=== PATIENT | male | born 1970 | race Caucasian/White ===

== ENCOUNTER 2020-11-12 07:05 | Day surgery (SDC) | payer BC ==
[~2020-11-12] VITALS: Ht 182.9 cm; Wt 131.5 kg
[~2020-11-12 07:05] MED LIST: CARV6.2551 PO; DILT30TA PO; ENAL2.5T7 PO; FURO1TAB31 PO; LEVO25TA6 PO; POTA10TA51 PO; PRAM0.12 PO; RIVA10TA PO
[2020-11-12] MEDS ORDERED: fentaNYL CITRATE 100 MCG/2 ML VL IV ONE (07:30)
[2020-11-12] MEDS ORDERED: LIDOCAINE VISCOUS 2% 15ML UD MT ONE (07:30)
[2020-11-12] MEDS ORDERED: MIDAZOLAM HCL 2MG/2ML 2ml VIAL (1mg/ml) IV ONE (07:30)
[2020-11-12] MEDS ORDERED: diphenhdrAMINE HCL 50 MG/1 ML VL IV ONE (07:30)
== END 2020-11-12 10:24 | disposition home or self-care (01) ==
LOC: CATH 07:05
PROVIDERS: ATTEND Internal Medicine Cardiovascular Disease
DX: Z13.6 Encounter for screening for cardiovascular disorders (principal); I10 Essential (primary) hypertension; K21.9 Gastro-esophageal reflux disease without esophagitis; I08.1 Rheumatic disorders of both mitral and tricuspid valves; I48.91 Unspecified atrial fibrillation; Z20.822 Contact with and (suspected) exposure to COVID-19; Z98.890 Other specified postprocedural states; Z79.899 Other long term (current) drug therapy; Z68.33 Body mass index [BMI] 33.0-33.9, adult; Z68.39 Body mass index [BMI] 39.0-39.9, adult
CPT/HCPCS: 93312; J1200; J2250; J3010; U0003

== ENCOUNTER 2024-06-06 06:09 | Inpatient (IN) | payer BC ==
[2024-06-04 11:08] LABS: Urine Bacteria None Seen /hpf (None Seen)
[2024-06-04 11:15] LABS: Basophils # (auto) 0 10 ^3/uL (0-0.2); Eosinophils # (auto) 0.1 10 ^3/uL (0-0.8); Lymphocytes # (auto) 0.4 10 ^3/uL (0.4-5.4); Monocytes # (auto) 0.4 10 ^3/uL (0-1.3); Monocytes % (auto) 5.2 % (0.0-12.0); Neutrophils # (auto) 5.9 10 ^3/uL (1.6-8.6); Nucleated Red Blood Cells % 0.1 %
[2024-06-04 11:16] LABS: Basophils % (auto) 0.5 % (0.0-2.0); Eosinophils % (auto) 1.3 % (0.0-7.0); Hematocrit 46.3 % (41.0-53.0); Hemoglobin 15.2 g/dL (13.5-17.5); Lymphocytes % (auto) 5.5 % (10.0-50.0); Mean Corpuscular Hemoglobin 35.1 pg (28.0-32.0); Mean Corpuscular Hgb Conc. 32.9 g/dL (32.0-36.0); Mean Corpuscular Volume 106.5 fL (80.0-100.0); Neutrophils % (auto) 87.5 % (37.0-80.0); Platelet Count (auto) 134 10^3/uL (140-450); Red Blood Cells 4.35 10^6/uL (4.5-5.90); Red Cell Distribution Width 16.9 % (11.8-14.3); White Blood Cell 6.8 10^3/uL (4.4-10.8)
[2024-06-04 11:27] LABS: INR 1.22 (0.9-1.15); Partial Thromboplastin Time 25.4 SEC (24.5-34.5); Prothrombin Time 12.7 sec (9.3-11.8)
[2024-06-04 11:30] LABS: Urine Blood Negative /uL (Negative); Urine Clarity Clear (Clear); Urine Color Yellow (Yellow); Urine Mucus FEW (None Seen); Urine Protein, UAD 1+ (Negative); Urine Specific Gravity 1.032 (1.001-1.035); Urine Urobilinogen Normal (Negative); Urine WBC 1 /hpf (0 - 3); Urine pH 5.5 (5.0-9.0)
[2024-06-04 11:55] LABS: Alanine Aminotransferase 34 U/L (7-40); Alkaline Phosphatase 40 U/L (46-116); Anion Gap 5 (5-15); Aspartate Aminotransferase 11 U/L (13-40); BUN/Creatinine Ratio 21.2 (10.0-20.0); Blood Urea Nitrogen 29 mg/dL (9-23); Calcium 9.9 mg/dL (8.7-10.4); Carbon Dioxide 25 mmol/L (20-31); Chloride 110 mmol/L (98-107); Glucose 155 mg/dL (74-106); Potassium 4.6 mmol/L (3.5-5.1); Sodium 140 mmol/L (136-145)
[2024-06-04 11:56] LABS: Bilirubin, Total 1.1 mg/dL (0.2-1.0); Total Protein 5.9 g/dL (5.7-8.2)
[~2024-06-06] VITALS: Ht 188 cm; Wt 148.8 kg
[2024-06-06] VITALS (8 sets, daily range): BP systolic 95–103; BP diastolic 51–65; PULSE 70–102; RESP 14–19; TEMP 97.9–99.1; O2SAT 91–99
[~2024-06-06 06:09] MED LIST changes: +EMPA1TAB PO; +ENAL1TAB42 PO; -ENAL2.5T7 PO; +POTA-36 PO; -POTA10TA51 PO
[2024-06-06] MEDS: ceFAZolin 2 GM/D5W100ml 100 ML IV ONE (07:42)
[2024-06-06] MEDS ORDERED: MIDAZOLAM HCL 2MG/2ML 2ml VIAL (1mg/ml) ONE (08:23)
[2024-06-06] MEDS ORDERED: fentaNYL CITRATE 100 MCG/2 ML VL ONE (08:23)
[2024-06-06] MEDS ORDERED: KETAMINE 50mg/ML 1ml syringe ONE (08:23)
[2024-06-06] MEDS ORDERED: MEPERIDINE HCL (50 MG/ML) 1 ML VIAL ONE (08:23)
[2024-06-06] MEDS ORDERED: GLYCOPYRROLATE 0.2 MG/ML 1ML VIAL ONE (08:24)
[2024-06-06] MEDS ORDERED: PROPOFOL 10 MG/ML 20 ML IV ONE (08:24)
[2024-06-06] MEDS ORDERED: LIDOCAINE 2% (LOCAL ANESTH.) PF 5ml SDV ONE (08:24)
[2024-06-06] MEDS ORDERED: ePHEDrine SULFATE 50 MG/ML AMP ONE (08:24)
[2024-06-06] MEDS ORDERED: ROCURONIUM 10MG/ML 10ML VIAL IV ONE (08:24)
[2024-06-06] MEDS ORDERED: KETOROLAC TROMETH 30 MG/ML 1ML VIAL ONE (08:24)
[2024-06-06] MEDS ORDERED: ONDANSETRON HCL 4 MG/2 ML VIAL ONE (08:24)
[2024-06-06] MEDS ORDERED: DexAMETHasone SOD PHOS 10MG/1ML VIAL INJ ONE (08:24)
[2024-06-06] MEDS: SUCCINYLCHOLINE CHLORIDE 20 MG/ML 10ML VIAL IV ONE (09:56)
[2024-06-06] MEDS: BUPIVACAINE HCL 0.25% P/F 10 ML VIAL ONE (10:50)
[2024-06-06] MEDS: LIDOCAINE W/ EPINEPHRINE 1% 20ML VIAL ONE (10:50)
[2024-06-06] MEDS ORDERED: SUGAMMADEX 200mg/2ml Vial (100MG/ML) IV ONE (10:53)
[2024-06-06] MEDS ORDERED: HYDROmorphone HCL 2 MG/ML VL/or syr IV PRN ×3 (11:00→14:15)
[2024-06-06] MEDS ORDERED: D5W/SOD CHL 0.45%/KCL 20MEQ 1,000 ML IV SCH (11:00)
[2024-06-06] MEDS ORDERED: ONDANSETRON HCL 4 MG/2 ML VIAL IV PRN (11:00)
[2024-06-06] MEDS: ONDANSETRON HCL 4 MG/2 ML VIAL IV ONE (11:30)
[2024-06-06] MEDS ORDERED: MORPHINE SULFATE INJ 2 MG/ml SYRG IV PRN (13:30)
[2024-06-06] MEDS ORDERED: NITROGLYCERIN 0.4 MG SL TAB SL PRN (13:30)
[2024-06-06] MEDS: ceFAZolin 2 GM/D5W50ml 50 ML IV SCH (15:34)
[2024-06-06] MEDS: ACETAMINOPHEN/CODEINE#3 (300/30mg) TAB PO PRN (17:08)
[2024-06-06] MEDS ORDERED: LEVO25TA6 PO (17:10)
[2024-06-06] MEDS ORDERED: MYCO500T PO (17:10)
[2024-06-06] MEDS: D5W/SOD CHL 0.45%/KCL 20MEQ 1,000 ML IV SCH (17:10)
[2024-06-06] MEDS ORDERED: PRAM0.373 PO (17:10)
[2024-06-06] MEDS ORDERED: POTA-36 PO (17:10)
[2024-06-06] MEDS ORDERED: FURO1TAB31 PO (17:10)
[2024-06-06] MEDS ORDERED: EMPA1TAB PO (17:10)
[2024-06-06] MEDS ORDERED: TAMS0.4C39 PO (17:10)
[2024-06-06] MEDS ORDERED: ATOR20TA50 PO (17:10)
[2024-06-06] MEDS ORDERED: CARV6.2551 PO (17:10)
[2024-06-06] MEDS ORDERED: RIVA20TA PO (17:10)
[2024-06-06] MEDS: PRAMIPEXOLE DIHYDROCHLORIDE MO 0.25 MG TAB PO SCH ×2 (21:52→22:00)
[2024-06-07] VITALS (7 sets, daily range): BP systolic 99–136; BP diastolic 45–89; PULSE 69–95; RESP 17–20; TEMP 97.6–98; O2SAT 95–97
[2024-06-07] MEDS: LEVOTHYROXINE SODIUM 25 MCG TAB PO SCH (05:20)
[2024-06-07 05:37] LABS: Basophils # (auto) 0 10 ^3/uL (0-0.2); Basophils % (auto) 0.1 % (0.0-2.0); Eosinophils # (auto) 0 10 ^3/uL (0-0.8); Lymphocytes # (auto) 0.3 10 ^3/uL (0.4-5.4); Neutrophils # (auto) 5.2 10 ^3/uL (1.6-8.6)
[2024-06-07 05:40] LABS: Hematocrit 44.7 % (41.0-53.0); Hemoglobin 14.6 g/dL (13.5-17.5); Lymphocytes % (auto) 5.1 % (10.0-50.0); Mean Corpuscular Hemoglobin 35.1 pg (28.0-32.0); Mean Corpuscular Hgb Conc. 32.7 g/dL (32.0-36.0); Mean Corpuscular Volume 107.3 fL (80.0-100.0); Monocytes # (auto) 0.4 10 ^3/uL (0-1.3); Monocytes % (auto) 6.2 % (0.0-12.0); Neutrophils % (auto) 88.6 % (37.0-80.0); Platelet Count (auto) 130 10^3/uL (140-450); Red Blood Cells 4.16 10^6/uL (4.5-5.90); Red Cell Distribution Width 16.9 % (11.8-14.3); White Blood Cell 5.9 10^3/uL (4.4-10.8)
[2024-06-07 05:58] LABS: Alanine Aminotransferase 32 U/L (7-40); Albumin 4.2 g/dL (3.2-4.8); Alkaline Phosphatase 39 U/L (46-116); Aspartate Aminotransferase 10 U/L (13-40); Bilirubin, Total 1.1 mg/dL (0.2-1.0); Calcium 9.1 mg/dL (8.7-10.4); Chloride 107 mmol/L (98-107); Glucose 163 mg/dL (74-106); Potassium 5.3 mmol/L (3.5-5.1); Sodium 136 mmol/L (136-145); Total Protein 5.9 g/dL (5.7-8.2)
[2024-06-07] MEDS ORDERED: LEVOTHYROXINE SODIUM 25 MCG TAB PO SCH (06:00)
[2024-06-07 07:19] LABS: Anion Gap 6 (5-15); BUN/Creatinine Ratio 18.8 (10.0-20.0); Blood Urea Nitrogen 22 mg/dL (9-23); Carbon Dioxide 23 mmol/L (20-31)
[2024-06-07] MEDS: PANTOPRAZOLE 40 MG/10 ML VIAL INJ IV SCH (10:23)
[2024-06-07] MEDS ORDERED: DOCU-94 PO (11:58)
[2024-06-07] MEDS ORDERED: CEPH500C PO (11:58)
[2024-06-07] MEDS ORDERED: ACE3T PO (11:58)
== END 2024-06-07 16:30 | disposition home or self-care (01) | DRG 353 ==
LOC: SUR 06:09 → TELE 13:23 → TELE-EAST 14:20
PROVIDERS: ADMIT Surgery; ATTEND Internal Medicine
PROC: 0DBU0ZZ Excision of Omentum, Open Approach (ICD-10-PCS; 2024-06-06)
PROC: 0WQF0ZZ Repair Abdominal Wall, Open Approach (ICD-10-PCS; principal; 2024-06-06 10:05)
DX: K42.9 Umbilical hernia without obstruction or gangrene (principal); N17.0 Acute kidney failure with tubular necrosis; Z68.41 Body mass index [BMI] 40.0-44.9, adult; D68.69 Other thrombophilia; I50.32 Chronic diastolic (congestive) heart failure; G47.30 Sleep apnea, unspecified; I11.0 Hypertensive heart disease with heart failure; E66.01 Morbid (severe) obesity due to excess calories; D86.0 Sarcoidosis of lung; E03.9 Hypothyroidism, unspecified; I48.91 Unspecified atrial fibrillation; K59.00 Constipation, unspecified
CPT/HCPCS: 36415; 71045; 80053; 81001; 84132; 84443; 85025; 85610; 85730; 86850; 86900; 86901; 88302; 94660; G0378; J0330; J1100; J1885; J2003; J2250; J2405; J2470; J2704; J3490